=== PATIENT | male | born 1970 | race Caucasian/White ===

== ENCOUNTER 2018-01-13 15:47 | Outpatient (CLI) | payer OTHER ==
[2018-01-13 16:26] LABS: #Eosinphils 0.4 thou/uL (0.0-0.7); #Lymphocytes 2.4 thou/uL (1.20-3.40); #Monocytes 0.6 thou/uL (0.11-0.59); #Neutrophils 5.8 thou/uL (1.40-6.50); %Basophils 0.3 % (0.0-1.0); %Eosinophils 4.2 % (0.0-10.0); %Lymphocytes 25.9 % (21.0-51.0); %Monocytes 6.8 % (0.0-10.0); %Neutrophils 62.9 % (42.0-75.0); Mean Corpuscular HGB CONC 32.7 g/dL (32.0-36.0); Mean Corpuscular Hemoglobin 30.3 pg (27.0-31.0); Mean Corpuscular Volume 92.8 fL (78.0-98.0); Mean Platelet Volume 6.5 fL (7.4-10.4); Platelet Count 293 thou/uL (130-400); RBC Distribution Width 11.8 % (11.5-14.5); Red Blood Cell (RBC) Count 4.62 mill/uL (4.70-6.10); White Blood Cell (WBC) Count 9.2 thou/uL (4.8-10.8)
[2018-01-13 16:44] LABS: Anion Gap 13 mmol/L (10-20); BUN (Urea Nitrogen) 25 mg/dL (8.9-20.6); Calc. Creatinine Clearance 0 mL/min (70-130); Calcium 9.1 mg/dL (7.8-10.44); Carbon Dioxide 26 mmol/L (22-29); Chloride 106 mmol/L (98-107); Estimated GFR-MDRD 65; Glucose 101 mg/dL (70-105); Sodium 141 mmol/L (136-145)
--- NOTE | 2018-01-18 16:52 | EKG ---
Test Reason : Blood Pressure : / mmHG Vent. 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
== END 2018-01-13 15:48 | disposition home or self-care (01) ==
LOC: LABBT 15:47
PROVIDERS: ATTEND Surgery
DX: Z01.818 Encounter for other preprocedural examination (principal); K60.3 Anal fistula
CPT/HCPCS: 80048; 85025; 93005; 93010

== ENCOUNTER 2018-01-16 08:23 | Day surgery (SDC) | payer OTHER ==
[2018-01-13 15:57] VITALS: BMI 35.2
[2018-01-16] MEDS ORDERED: CEFAZOLIN/Water 2 GM/20 ML SYRINGE ONE (11:00)
[2018-01-16] MEDS ORDERED: Bupivacaine HCl 0.5%/Epinephrine 1:200,000/PF 30 ml Vial ONE (11:13)
[2018-01-16] MEDS ORDERED: Bacitracin Zinc Ointment 30 gm TUBE ONE (11:13)
[2018-01-16] MEDS ORDERED: HYDROmorphone 0.5 MG/0.5 ML SYRINGE ONE ×2 (11:15→11:16)
[2018-01-16] MEDS ORDERED: Midazolam HCl 2 mg/2 ml Vial ONE (11:15)
[2018-01-16] MEDS ORDERED: cefOXitin 2 GM VIAL ONE (11:23)
[2018-01-16] MEDS ORDERED: Sodium Chloride 0.9% 100 ML ONE (11:23)
--- NOTE | 2018-01-16 12:21 | OP ---
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 SURGEON: Frandy Ontiveros M.D. PROCEDURE PERFORMED: Anal fistulotomy. INDICATIONS: This is a 47-year-old male who a couple years ago had an anal abscess that spontaneousl y drained. He was left with persistent drainage over the last couple years. FINDINGS: He had a right lateral tract that was straight without curve into the dentate line, minima l muscle involvement. PROCEDURE IN DETAIL: After informed consent was obtained, the patient was taken to the operating [facility] and given general endotracheal anesthesia. He was placed in the lithotomy position. He had underg one mechanical bowel prep at home. A 4-quadrant anal block was performed utilizing 0.5% Marcaine. T he bivalve anal retractor was inserted. The fistulous tract was evident externally. The tract was c annulated with a 20-gauge angiocatheter and methylene blue was inserted. Then, a probe was gently us ed to guide the tract. Then the tract was opened utilizing electrocautery. Hemostasis assured. Gel foam impregnated with bacitracin was inserted. Sterile bandage applied. The patient tolerated the p rocedure well and was transferred to recovery in good condition. Sponge and needle count verified co rrect x2.
[2018-01-16] MEDS ORDERED: HYDROcodone/Acetaminophen 5/325 mg Tablet ONE (12:53)
== END 2018-01-16 13:30 | disposition home or self-care (01) ==
LOC: SDC 08:23
PROVIDERS: ATTEND Surgery
PROC: 0H88XZZ Division of Buttock Skin, External Approach (ICD-10-PCS; principal; 2018-01-16)
DX: K60.3 Anal fistula (principal); Z79.899 Other long term (current) drug therapy; Z87.891 Personal history of nicotine dependence; Z88.8 Allergy status to other drugs, medicaments and biological substances; Z88.6 Allergy status to analgesic agent
CPT/HCPCS: J0670; J0694; J1170; J2250; J7050; Q9968